=== PATIENT | female | born 2000 | race Caucasian/White ===

== ENCOUNTER 2018-05-23 15:44 | Emergency (ER) | payer OTHER ==
[2018-05-23 15:57] VITALS: BP 115/70; PULSE 71; TEMP 98.2; BMI 23.8
--- NOTE | 2018-05-23 15:59 | PDOC ---
History of Present Illness - General Chief Complaint: Shortness of Breath Stated Complaint: SOB Time Seen by Provider: 05/23/18 15:58 - History of Present Illness Initial Comments: 05/23/18 16:19 Ms. Zee is a 17 yo female w/ pmh of minor anxiety who presents for evaluation of chest pain. Patient reports she was fine when she went to bed last night however was experiencing some change in / difficulty breathing this morning upon waking up. 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 Patient reports she reported to her medic who placed a 12 lead and observed some PVC's. Patient presents for evaluation of this. No other complaints at this time. The patient denies headache and dizziness. Denies fever, chills, nausea, vomit, diarrhea and constipation. Denies dysuria, frequency, urgency and hematuria. Allergies: NKDA Past History - Past Medical History Allergies/Adverse Reactions: Allergies Allergy/AdvReac Type Severity Reaction Status Date / Time No Known Allergies Allergy Verified 05/23/18 15:57 Home Medications: Ambulatory Orders Nitrofurantoin Monohyd/M-Cryst [Macrobid -] 100 mg PO BID #10 capsule 05/23/18 CVA: No COPD: No Seizures: Yes ( A CHILD NO MEDS) - Suicide/Smoking/Psychosocial Hx Smoking History: Never smoked Have you smoked in the past 12 months: No Information on smoking cessation initiated: No Hx Alcohol Use: No Drug/Substance Use Hx: No Review of Systems - Review of Systems Comments:: 05/23/18 16:25 GENERAL/CONSTITUTIONAL: No fever or chills. No weakness. HEAD, EYES, EARS, NOSE AND THROAT: No change in vision. No ear pain or discharge. No sore throat. CARDIOVASCULAR: +Chest pain / SOB as described RESPIRATORY: No cough, wheezing, or hemoptysis. GASTROINTESTINAL: No nausea, vomiting, diarrhea or constipation. GENITOURINARY: No dysuria, frequency, or change in urination. MUSCULOSKELETAL: No joint or muscle swelling or pain. No neck or back pain. SKIN: No rash NEUROLOGIC: No headache, vertigo, loss of consciousness, or change in strength/ sensation. ENDOCRINE: No increased thirst. No abnormal weight change HEMATOLOGIC/LYMPHATIC: No anemia, easy bleeding, or history of blood clots. ALLERGIC/IMMUNOLOGIC: No hives or skin allergy. *Physical Exam - Vital Signs Last Vital Signs Temp Pulse Resp BP Pulse Ox 98.2 F 71 18 115/70 98 05/23/18 15:54 05/23/18 15:54 05/23/18 15:54 05/23/18 15:54 05/23/18 15:54 - Physical Exam Comments: 05/23/18 16:25 GENERAL: Awake, alert, and fully oriented, in no acute distress HEAD: No signs of trauma, normocephalic, atraumatic EYES: PERRLA, EOMI, sclera anicteric, conjunctiva clear ENT: Auricles normal inspection, hearing grossly normal, nares patent, oropharynx clear without exudates. Moist mucosa NECK: Normal ROM, supple, no lymphadenopathy, JVD, or masses LUNGS: No distress, speaks full sentences, clear to auscultation bilaterally HEART: Regular rate and rhythm, normal S1 and S2, no murmurs, rubs or gallops, peripheral pulses normal and equal bilaterally. ABDOMEN: Soft, nontender, normoactive bowel sounds. No guarding, no rebound. No masses EXTREMITIES: Normal inspection, Normal range of motion, no edema. No clubbing or cyanosis. NEUROLOGICAL: Cranial nerves II through XII grossly intact. Normal speech, normal gait, no focal sensorimotor deficits SKIN: Warm, Dry, normal turgor, no rashes or lesions noted. ED Treatment Course - LABORATORY CBC & Chemistry Diagram: 05/23/18 16:35 05/23/18 16:35 Medical Decision Making - Medical Decision Making 05/23/18 18:36 Ms. Zee is a 17 yo female w/ pmh as described who presents for evaluation of chest pain x1 day. Patient currently resting calmly. Cardiac workup started for evaluation. EKG regular rate, regular rhythm, normal access, normal interval, no ST elevations or depressions. Normal EKG. Labs pending. 05/23/18 18:56 Labs significant for UTI as below. Discharging w/ ABX and outpatient follow-up. No concern for other acute process at this time. Laboratory Results - last 24 hr 05/23/18 05/23/18 05/23/18 16:35 16:35 16:48 WBC 6.2 RBC 4.65 Hgb 14.1 Hct 40.2 MCV 86.4 MCH 30.3 MCHC 35.1 RDW 12.9 Plt Count 284 MPV 8.6 Absolute Neuts (auto) 3.6 Neutrophils % 57.5 Lymphocytes % 29.6 Monocytes % 8.1 Eosinophils % 4.3 Basophils % 0.5 Nucleated RBC % 0 Sodium 142 Potassium 4.1 Chloride 107 Carbon Dioxide 23 Anion Gap 12 BUN 9 Creatinine 0.6 Creat Clearance w eGFR > 60 Random Glucose 87 Calcium 9.1 Total Bilirubin 0.4 AST 21 ALT 23 Alkaline Phosphatase 49 Total Protein 7.1 Albumin 3.9 Serum , Qual Negative Urine Color Urine Appearance Urine pH Ur Specific [place] Urine Protein Urine Glucose (UA) Urine Ketones Urine Blood Urine Nitrite Urine Bilirubin Urine Urobilinogen Ur Leukocyte Esterase Urine WBC (Auto) Urine RBC (Auto) Ur Epithelial Cells Urine Bacteria Urine Mucus Urine HCG, Qual 05/23/18 18:23 WBC RBC Hgb Hct MCV MCH MCHC RDW Plt Count MPV Absolute Neuts (auto) Neutrophils % Lymphocytes % Monocytes % Eosinophils % Basophils % Nucleated RBC % Sodium Potassium Chloride Carbon Dioxide Anion Gap BUN Creatinine Creat Clearance w eGFR Random Glucose Calcium Total Bilirubin AST ALT Alkaline Phosphatase Total Protein Albumin Serum , Qual Urine Color Red Urine Appearance Cloudy Urine pH 5.0 Ur Specific [place] 1.009 Urine Protein Negative Urine Glucose (UA) Negative Urine Ketones 1+ H Urine Blood 1+ H Urine Nitrite Negative Urine Bilirubin Negative Urine Urobilinogen Negative Ur Leukocyte Esterase 2+ H Urine WBC (Auto) 7 Urine RBC (Auto) 4 Ur Epithelial Cells Moderate Urine Bacteria Rare Urine Mucus Rare Urine HCG, Qual Negative *DC/Admit/Observation/Transfer Diagnosis at time of Disposition: UTI (urinary tract infection) Qualifiers: Urinary tract infection type: site unspecified Hematuria presence: with hematuria Qualified Code(s): N39.0 - Urinary tract infection, site not specified ; R31.9 - Hematuria, unspecified - Discharge Dispostion Disposition: HOME - Referrals Referrals: Sukhwinder Salazar [Primary Care Provider] - - Patient Instructions Printed Discharge Instructions: DI for Urinary Tract Infection (UTI) Additional Instructions: You were evaluated today in the ER and found to have a UTI. A prescription has been sent to your pharmacy. Please take all medications as proscribed. Follow- up with primary care provider next week as needed for further evaluation. Return to ER if any fever, chills, pain, or other concerning symptoms. - Post Discharge Activity
--- NOTE | 2018-05-23 16:24 | PDOC ---
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 -she has no significant PMH - Physicial Exam PE: 05/23/18 17:28 wnwd 17 yo female in no acute distress head ncat neck supple lungs cta b/l cvs [id number] abd flat,nontender ext no e/c/c no flank pain skin warm and dry neuro axox3,no gross focal neuro deficits psych appropriate - Medical Decision Making 05/23/18 16:24 imp: atypcal chestpain plan ekg,cbc,comp,preg test 05/23/18 17:31 labs wnl stable VS ekg in nsr, no ischemia,no pvcs preg test is negative UA reveals mild UTI..Pt d/c home with RX antibiotics 05/23/18 18:57
[2018-05-23 16:47] LABS: BASO % 0.5 % (0-2.0); EOS % 4.3 % (0-4.5); HEMATOCRIT 40.2 % (32.4-45.2); HEMOGLOBIN 14.1 GM/dL (10.7-15.3); LYMPH % 29.6 % (8-40); MCH 30.3 pg (25.7-33.7); MCHC 35.1 g/dl (32.0-36.0); MEAN CELL VOLUME 86.4 fl (80-96); MEAN PLT VOLUME 8.6 fl (7.5-11.1); MONO % 8.1 % (3.8-10.2); NEUT % 57.5 % (42.8-82.8); PLATELET COUNT 284 K/MM3 (134-434); RBC 4.65 M/mm3 (3.60-5.2); RDW 12.9 % (11.6-15.6); WHITE BLOOD COUNT 6.2 K/mm3 (4.0-10.0)
[2018-05-23 17:17] LABS: ALBUMIN 3.9 g/dl (3.4-5.0); ANION GAP 12 MMOL/L (8-16); BILIRUBIN,TOTAL 0.4 mg/dL (0.2-1.0); BLOOD UREA NITROGEN 9 mg/dL (7-18); CALCIUM 9.1 mg/dL (8.5-10.1); CHLORIDE 107 mmol/L (98-107); CO2 23 mmol/L (21-32); CREATININE 0.6 mg/dL (0.55-1.3); GLUCOSE,RANDOM 87 mg/dL (74-106); POTASSIUM 4.1 mmol/L (3.5-5.1); SGOT/AST 21 U/L (15-37); SGPT/ALT 23 U/L (13-61); SODIUM 142 mmol/L (136-145); TOT PROT 7.1 g/dl (6.4-8.2)
[2018-05-23 17:18] LABS: ALK PHOS 49 U/L (45-117)
[2018-05-23 18:39] LABS: URINE APPEARANCE CLOUDY; URINE BILIRUBIN NEGATIVE (<2.0 mg/dL); URINE COLOR RED; URINE GLUCOSE (UA) NEGATIVE (NEGATIVE); URINE KETONE 1+ (NEGATIVE); URINE NITRITE NEGATIVE (NEGATIVE); URINE PROTEIN NEGATIVE (NEGATIVE); URINE UROBILINOGEN NEGATIVE mg/dL (0.2-1.0)
[2018-05-23 18:41] LABS: HCG,QUALITATIVE URINE Negative
[2018-05-23 18:49] LABS: URINE LEUK ESTERASE 2+ (NEGATIVE)
[2018-05-23 18:50] LABS: EPI CELLS MODERATE /HPF (FEW); URINE BACTERIA RARE /hpf (NONE SEEN); URINE MUCUS RARE
[2018-05-23] MEDS ORDERED: NITROFURANTOIN MACROCRYSTAL 50 MG CAPSULE (FP) PO SCH (19:00)
[2018-05-23] MEDS ORDERED: NITROFURANTOIN MACROCRYSTAL 50 MG CAPSULE (FP) ONE (19:01)
--- NOTE | 2018-05-24 10:00 | EKG ---
Test Reason : Blood Pressure : / mmHG Vent. Rate : 075 BPM Atrial Rate : 075 BPM P-R Int : 130 ms QRS Dur : 078 ms QT Int : 392 ms P-R-T Axes : 032 074 051 degrees QTc Int : 437 ms NORMAL SINUS RHYTHM NORMAL ECG NO PREVIOUS ECGS AVAILABLE Confirmed by MALLORY CABEZAS MD ([id number]) on 05/24/2018 10:00:23 AM Referred By: Confirmed By:MALLORY CABEZAS MD
== END 2018-05-23 19:12 | disposition home or self-care (01) ==
LOC: JER 15:44
DX: N39.0 Urinary tract infection, site not specified (principal); R31.9 Hematuria, unspecified
CPT/HCPCS: 36415; 71046-TC-FY; 80053; 81003; 81015; 84703; 85025; 87086; 93005; 93010; 99283-25